=== PATIENT | female | born 1975 | race Caucasian/White ===

== ENCOUNTER 2019-03-13 12:36 | Emergency (ER) | payer MEDICAID ==
--- NOTE | 2019-03-13 13:20 | ED Physician Documentation ---
PD HPI HEENT - Stated complaint Stated Complaint: RT EAR BLEED, FLU LIKE SYMPTOMS - Chief complaint Chief Complaint: Heent - History obtained from History obtained from: Patient - History of Present Illness Timing - onset: Yesterday Timing - details: Abrupt onset Location: Right ear Improves: Medication Associated symptoms: Fever, Congestion, Rhinorrhea Recently seen: Not recently seen - Additional information Additional information: This is a 43-year-old woman who presents with complaints that she got "knocked out" 3 days ago with an upper respiratory type infection that she think she got from her daughter who had been previously sick. She took a bath trying to get herself to relax with the symptoms and she got water in the right ear and she says she always has a tunnel wax so after she took the bath and got the water in the ear she was having little bit of discomfort and felt like she could not get the water out so she irrigated it yesterday and got a huge chunk of wax out. Last night she had a pink watery type discharge that continued out of the right ear and a lot of pain at a 10 out of 10 to a dull ache. The hearing is also diminished in that ear. Left ear feels little clogged but does not have the same problems. She did not irrigate the left ear. She does continue to complain of some nasal congestion, minimal sore throat minimal coughing. She has had temperatures up to 102 degrees but this morning it was 100. She is using [place] cold medication and takes meloxicam on a daily basis the last time was last night. She feels that the ear pain is much improved today. She is also experienced allover stabbing body pains with her flulike symptoms. Review of Systems Constitutional: reports: Fever, Chills, Myalgias Ears: reports: Loss of hearing, Ear pain, Drainage/discharge Nose: reports: Rhinorrhea / runny nose, Congestion Throat: reports: Sore throat Respiratory: reports: Cough GI: denies: Vomiting PD PAST MEDICAL HISTORY - Allergies Allergies/Adverse Reactions: Allergies Allergy/AdvReac Type Severity Reaction Status Date / Time No Known Drug Allergies Allergy Verified 03/13/19 12:39 PD ED PE NORMAL - Vitals Vital signs reviewed: Yes - General General: Alert and oriented X 3, No acute distress, Well developed/nourished - HEENT HEENT: Atraumatic, PERRL, EOMI, Moist mucous membranes, Other (At the left ear canal is occluded with cerumen. The right ear canal there is a little bit of moisture in it no fresh blood. The TM itself is a little scaly but I can identify landmarks. There is a small spot on the posterior upper aspect near the limbus that has a fresh spot of blood on it is unclear whether or not there is a perforation although there is no pus present in the ear canal. There is an enlarged left posterior cervical lymph node that is mildly tender.) - Neck Neck: Supple, no meningeal sign. No: No adenopathy - Cardiac Cardiac: RRR, No murmur - Respiratory Respiratory: No respiratory distress, Clear bilaterally - Neuro Neuro: Alert and oriented X 3, chair car attendant 2-12 intact, Normal speech - Psych Psych: Normal mood, Normal affect Results - Vitals Vitals: Vital Signs - 24 hr 03/13/19 03/13/19 12:39 13:46 Temperature 37.1 C 36.7 C Heart Rate 101 H 96 Respiratory 15 16 Rate Blood Pressure 141/86 H 125/82 H O2 Saturation 98 98 Oxygen O2 Source Room air PD MEDICAL DECISION MAKING - ED course ED course: No evidence of bacterial infection to warrant antibiotics. Bleeding is coming from the TM without obvious perforation site at this time. Recommend symptomatic treatment of URI and follow-up with PMD to recheck TM in about 12-14 days. Departure - Departure Disposition: 01 Home, Self Care Clinical Impression: Ear pain, right, URI, acute Condition: Good Instructions: ED Upper Resp Infec No Abx Tx Follow-Up: Your,Doctor [Other] [facility] [Provider Group] Comments: Do not get any liquid in the right ear at all. Use a cotton ball when you are sleeping at night to collect any drainage and also if you get in the shower so that no water goes in the ear. Continue with the meloxicam as needed for pain and cough and cold medications as needed for your upper respiratory symptoms. You should have your doctor look at the ear and about 12 to 14 days to reevaluate whether or not there has been a perforation and how it is healing. Discharge Date/Time: 03/13/19 14:00
[2019-03-13 13:47] VITALS: BP 125/82
== END 2019-03-13 14:00 | disposition home or self-care (01) ==
LOC: ED 12:36
DX: J06.9 Acute upper respiratory infection, unspecified (principal); H92.21 Otorrhagia, right ear; H92.01 Otalgia, right ear
CPT/HCPCS: 99282; 99284

== ENCOUNTER 2023-10-22 15:30 | Emergency (ER) | payer MEDICAID ==
--- NOTE | 2023-10-22 15:43 | ED Physician Documentation ---
History of Present Illness - Stated complaint Stated Complaint: - Chief complaint Chief Complaint: General - History obtained from History obtained from: Patient - Additonal information Additional information: 47-year-old woman with history of Behcet's disease and lupus has recurrent left Bartholin cyst. It flared up over the last few days and is more swollen than its ever been. He has never had it drained nor has she ever had a Word catheter. PD PAST MEDICAL HISTORY - Past Medical History Past Medical History: Yes - Past Surgical History Past Surgical History: Yes - Present Medications Home Medications: Ambulatory Orders Medication Instructions Recorded Confirmed Sulfamethox/Trimeth 800/160 1 each PO BID #14 tablet 10/22/23 [Bactrim Ds 800/160] - Allergies Allergies/Adverse Reactions: Allergies Allergy/AdvReac Type Severity Reaction Status Date / Time No Known Drug Allergies Allergy Verified 10/22/23 15:33 - Social History Does the pt smoke?: No Smoking Status: Never smoker Does the pt drink ETOH?: No Does the pt have substance abuse?: No - Immunizations Immunizations are current?: Yes - POLST Patient has POLST: No PD ED PE NORMAL - General General: Alert and oriented X 3, No acute distress - Female Female : Service Writer Advisor present (Exam and procedures done with Maribeth MAST present and chaperoning), Other (Left sided Bartholin cyst abscess) Results - Vitals Vitals: Vital Signs - 24 hr 10/22/23 15:33 Temperature 36.9 C Heart Rate 90 Respiratory 16 Rate Blood Pressure 137/95 H O2 Saturation 99 Oxygen O2 Source Room air Procedures - Abscess I&D (location) Left Bartholin cyst abscess Preparation: Lidocaine 1%, With epi Incision: Incised with scalpel, Purulent drainage, Loculations broken, Culture obtained Other: Pt tolerated well, Dressing applied, Antibiotic prescribed PD Medical Decision Making - ED course ED course: We had a long discussion about Bartholin cysts and the usual approach. I discussed with her that the usual approach would be incision and drainage with Word catheter placement for 6 weeks. And she did not want a Word catheter just an I&D which was done and she was prescribed antibiotics with recommendation for gynecology follow-up. Departure - Departure Disposition: 01 Home, Self Care Clinical Impression: Bartholin's gland abscess Condition: Good Record reviewed to determine appropriate education?: Yes Instructions: ED Bartholins Cyst IandD Follow-Up: [facility] [Provider Group] Prescriptions: Sulfamethox/Trimeth 800/160 [Bactrim Ds 800/160] 1 each PO BID #14 tablet Comments: I sent your prescription electronically to the [facility] in [place]. We are performing a wound culture, the results should be done in 48-72 hours. If antibiotic change is necessary we will call you. Return if worse in the meantime, especially if you develop increased pain, fevers, cannot keep down the medication. Forms: PCP List
[2023-10-22 15:47] VITALS: BP 137/95; O2SAT 99
[2023-10-22] MEDS: LIDOCAINE 1%-EPI 1:100000 20 ML MDV SUBQ STA (16:06)
== END 2023-10-22 16:33 | disposition home or self-care (01) ==
LOC: ED 15:30
DX: N75.1 Abscess of Bartholin's gland (principal)
CPT/HCPCS: 56420; 87070; 87077; 87181; 87205